=== PATIENT | female | born 1960 | race Asian ===

== ENCOUNTER 2019-06-23 09:23 | Outpatient (CLI) | payer OTHER, SELFPAY ==
--- NOTE | ~2019-06-23 | XR_ITS ---
EXAMINATION: XR chest 2V EXAM DATE: 06/23/2019 09:57 INDICATION: Cough. TECHNIQUE: Frontal and lateral projections of the chest obtained and reviewed. Comparison is made to prior examination from 03/24/2004. FINDINGS: The lungs are clear. There are no pleural effusions. The cardiomediastinal silhouette is within normal limits. There is no pneumothorax suspected. There is mild mid thoracic dextroscoliosi s. IMPRESSION: No acute cardiopulmonary findings. Reviewed, dictated and finalized at location A. EED HARVESTER
== END 2019-06-23 09:24 | disposition home or self-care (01) ==
PROVIDERS: PCP Family Medicine; Visit Provider Nurse Practitioner Family
DX: R05 Cough (principal)
CPT/HCPCS: 71046

== ENCOUNTER 2020-09-13 16:06 | Outpatient (CLI) | payer OTHER, SELFPAY ==
--- NOTE | ~2020-09-13 | MM_ITS ---
EXAMINATION: MM screening [facility] BI w luisa HISTORY: Screening mammogram TECHNIQUE: Craniocaudal and mediolateral oblique 3-D tomosynthesis images were obtained and synthetic 2-D images were generated. CAD analysis was submitted and interpreted. COMPARISON: 04/21/2014, 06/16/2012, 07/14/2009 BREAST PARENCHYMAL COMPOSITION: There are scattered areas of fibroglandular density. FINDINGS: There is no evidence of suspicious mass, calcification, or architectural distortion to sugg est malignancy in either breast. There has been no suspicious interval change. IMPRESSION: 1. No mammographic evidence of malignancy. 2. Recommend routine screening mammography in one year. BI-RADS Category 1: Negative Reviewed, dictated and finalized at location A.
== END 2020-09-13 16:07 | disposition home or self-care (01) ==
LOC: ANHIMG 16:08
PROVIDERS: PCP Family Medicine; Visit Provider Nurse Practitioner Family
DX: Z12.31 Encounter for screening mammogram for malignant neoplasm of breast (principal)
CPT/HCPCS: 77063; 77067

== ENCOUNTER 2021-02-12 01:11 | Day surgery (SDC) | payer OTHER, SELFPAY ==
[2021-01-29 14:01] VITALS: BMI 21.7
[2021-02-12 11:00] VITALS: BP 111/85; PULSE 64; RESP 18; TEMP 36.3; O2SAT 99; BMI 21.9
[2021-02-12] MEDS: LACTATED RINGERS 1,000 ML 150 ML IV CONT ×2 (11:10→12:20)
--- NOTE | 2021-02-12 11:11 | WPDANESEPPF ---
Anes - Initial Pre Proc Eval Procedure: Operation Date: 02/12/21 11:45 Proposed Procedures p Screening Colonoscopy - Adán Wilhelm MD Date/Time: 02/12/21 11:11 Surgeon: Adán Wilhelm MD Pre Op Diagnosis: neoplasm screening Patient Data Age: 60 Gender: F Height: 1.57 m Weight: 54.3 kg Last Vital Signs Temp 36.3 C L 02/12/21 11:00 Pulse 64 02/12/21 11:00 Resp 18 02/12/21 11:00 BP 111/85 02/12/21 11:00 Pulse Ox 18 L 02/12/21 11:00 Allergies Allergy/AdvReac Type Severity Reaction Status Date / Time No Known Allergies Allergy Verified 02/12/21 10:58 Home Medications Medication Instructions Recorded Confirmed Type celecoxib 200 mg capsule 200 mg PO DAILY #30 cap 02/18/20 01/29/21 Rx triamcinolone acetonide 0.1 % 1 applic TOPICAL TID #80 g 07/20/20 01/29/21 Rx topical cream cyclobenzaprine 10 mg tablet 10 mg PO .COMPLEX #90 tablet 11/06/20 01/29/21 Rx valacyclovir 500 mg tablet See Rx Instructions .ROUTE 12/05/20 01/29/21 Rx .COMPLEX #90 tablet fluoxetine 20 mg capsule 20 mg PO DAILY #90 cap 12/15/20 01/29/21 Rx rizatriptan 10 mg disintegrating See Rx Instructions .ROUTE 01/24/21 01/29/21 Rx tablet .COMPLEX #10 tablet lansoprazole 30 mg capsule,delayed 30 mg PO DAILY #90 cap 02/07/21 Rx release zolpidem 10 mg tablet 10 mg PO QHS #30 tablet 02/12/21 Rx Patient hx anesthesia problems: none Family hx anesthesia problems: none Results Review: All pre-operative results and documents have been reviewed as part of the pre-operative evaluation. [facility] Past Medical History Medical History Anxiety BMI 25.0-25.9,adult Dyslipidemia Gastroesophageal reflux disease Major depressive disorder, single episode, unspecified Migraine, unspecified, not intractable, without status migrainosus Family History Family History Sibling Family history of type 2 diabetes mellitus Father Cancer Mother No problems noted. Sibling Diabetes mellitus Social History Social History Smoking packs per day: 1 Smoking cigarettes per day: 20.0 Smoking status: Former smoker Tobacco type: cigarettes Second hand tobacco smoke exposure: No Smoking end date: 05/05/96 Alcohol intake: current Drinks per week: 3 Substance use: never Substance use type: does not use Living arrangements: with family Gender identity (if verbalized by the patient): Female Spiritual care concerns: No Anes - Eval Final PreProcedure Day of Procedure 02/12/21 11:11 Patient weight: normal Heart: regular rate and rhythm Lungs: clear to auscultation Airway: Mallampati scale class II Neurological: alert and oriented Last oral intake: >/= 8 hours ASA classification: III Emergent: no Anesthetic plan: proceed Anesthesia type and monitoring: general GIVS and standard monitoring Results Review: All pre-operative results and documents have been reviewed as part of the pre-operative evaluation. Informed Consent: The patient's anesthetic plan and its attendant risks and benefits were discussed with the patient/family/POA. Questions were solicited and answers provided to the satisfaction of the patient/family/POA.
--- NOTE | 2021-02-12 11:49 | PM.HPGS ---
History of Present Illness History of Present Illness Consent: Risks, benefits, and alternatives have been discussed and questions answered. Patient agrees to proceed with procedure. Chief complaint: neoplasm screening Narrative: Abhijit Xiong is a 60 year old female with last colonoscopy 11 years ago. Review of Systems Constitutional: Constitutional: Denies headache(s) and Denies weakness Eyes: Eyes: Denies blurry vision ENT: Reports Normal hearing present, Denies headache(s) and Denies neck pain Cardiovascular: Cardiovascular: Denies chest pain and Denies dyspnea Respiratory: Respiratory: Denies dyspnea Gastrointestinal: Gastrointestinal: Reports no additional gastrointestinal complaints Genitourinary: Genitourinary: Denies dysuria Musculoskeletal: Musculoskeletal: Denies neck pain Integumentary/Breasts: Skin/Breast: Denies dry skin Neurologic: Reports Normal hearing present, Denies headache(s) and Denies weakness Psychiatric: Psychiatric: Denies anxiety Endocrine: Endocrine: Denies change in body appearance Hematologic/Lymphatic: Hematologic/Lymphatic: Denies easy bleeding Allergic/Immunologic: Allergic/Immunologic: Denies urticaria PMFSH Past Medical History Medical History Anxiety BMI 25.0-25.9,adult Dyslipidemia Gastroesophageal reflux disease Major depressive disorder, single episode, unspecified Migraine, unspecified, not intractable, without status migrainosus Family History Family History Sibling Family history of type 2 diabetes mellitus Father Cancer Mother No problems noted. Sibling Diabetes mellitus Social History Social History Smoking packs per day: 1 Smoking cigarettes per day: 20.0 Smoking status: Former smoker Tobacco type: cigarettes Second hand tobacco smoke exposure: No Smoking end date: 05/05/96 Alcohol intake: current Drinks per week: 3 Substance use: never Substance use type: does not use Living arrangements: with family Gender identity (if verbalized by the patient): Female Spiritual care concerns: No Meds Home Medications and Allergies Home Medications Medication Instructions Recorded Confirmed Type celecoxib 200 mg capsule 200 mg PO DAILY #30 cap 02/18/20 01/29/21 Rx triamcinolone acetonide 0.1 % 1 applic TOPICAL TID #80 g 07/20/20 01/29/21 Rx topical cream cyclobenzaprine 10 mg tablet 10 mg PO .COMPLEX #90 tablet 11/06/20 01/29/21 Rx valacyclovir 500 mg tablet See Rx Instructions .ROUTE 12/05/20 01/29/21 Rx .COMPLEX #90 tablet fluoxetine 20 mg capsule 20 mg PO DAILY #90 cap 12/15/20 01/29/21 Rx rizatriptan 10 mg disintegrating See Rx Instructions .ROUTE 01/24/21 01/29/21 Rx tablet .COMPLEX #10 tablet lansoprazole 30 mg capsule,delayed 30 mg PO DAILY #90 cap 02/07/21 Rx release zolpidem 10 mg tablet 10 mg PO QHS #30 tablet 02/12/21 Rx Allergies Allergy/AdvReac Type Severity Reaction Status Date / Time No Known Allergies Allergy Verified 02/12/21 10:58 Vital Signs Vital Signs - 24 hr 02/12/21 11:00 Temperature 97.4 F L Pulse Rate 64 Respiratory Rate 18 Blood Pressure 111/85 Pulse Oximetry 18 L Exam Const: General: comfortable and no acute distress HENMT: General nose exam: Normal nares present Eyes: General: appearance normal, both eyes and all related structures Neck: Neck: no JVD Resp: Auscultation: clear to auscultation bilaterally Cardio: Rate: regular rate Rhythm: regular rhythm GI: Inspection: non-distended GI Palp: Yes Soft to palpation Skin: General skin exam: normal color Neuro: General: gait normal Speech: normal speech Extrem: General: normal to inspection Psych: Mental Status: mental status grossly normal Assessment and Plan Assessment and plan (1) Screening for colon cancer
[2021-02-12 12:23] VITALS: BP 94/53; PULSE 62; RESP 15; O2SAT 100
[2021-02-12 12:33] VITALS: BP 87/53; PULSE 60; RESP 19; O2SAT 100
[2021-02-12 12:43] VITALS: BP 102/51; PULSE 62; RESP 18; O2SAT 100
== END 2021-02-12 12:58 | disposition home or self-care (01) ==
PROVIDERS: PCP Family Medicine; Visit Provider Internal Medicine Gastroenterology
PROC: 0DJD8ZZ Inspection of Lower Intestinal Tract, Via Natural or Artificial Opening Endoscopic (ICD-10-PCS; CPT 45378; principal; 2021-02-12 11:45)
DX: Z12.11 Encounter for screening for malignant neoplasm of colon (principal); K63.89 Other specified diseases of intestine; K64.8 Other hemorrhoids; D12.0 Benign neoplasm of cecum; K63.5 Polyp of colon; F41.9 Anxiety disorder, unspecified; E78.5 Hyperlipidemia, unspecified; F32.9 Major depressive disorder, single episode, unspecified; Z87.891 Personal history of nicotine dependence
CPT/HCPCS: 45385; 88305; J2001; J2704; J7120

== ENCOUNTER 2022-11-20 11:45 | Outpatient (CLI) | payer OTHER, SELFPAY ==
--- NOTE | ~2022-11-20 | XR_ITS ---
Left Knee Technique: AP, lateral, and sunrise views were obtained. Clinical History: Pain Findings: No fracture or dislocation is seen. Questionable osteochondral defect of the patella with p ossible small loose body at the inferior patellar region. Mild tricompartmental degenerative spurring present. Soft tissues are unremarkable. No joint effusion is seen. Impression: Possible osteochondral lesion of the patella with possible small loose body at the infrapatellar srinivas on. Consider follow-up MR to further evaluate as indicated. Mild tricompartmental degenerative changes otherwise. Reviewed, dictated and finalized at location . Impression: Possible osteochondral lesion of the patella with possible small loose body at the infrapatellar region. Consider follow-up MR to further evaluate as indicate d. Mild tricompartmental degenerative changes otherwise.
== END 2022-11-20 11:46 | disposition home or self-care (01) ==
PROVIDERS: PCP Family Medicine; Visit Provider Physician Assistant Medical
DX: M17.12 Unilateral primary osteoarthritis, left knee (principal)
CPT/HCPCS: 73562

== ENCOUNTER → 2022-11-29 06:54 | Outpatient (CLI) | payer OTHER, SELFPAY ==
--- NOTE | ~2022-11-29 | MR_ITS ---
MRI of the left knee Clinical history: Pain Technique: Coronal proton density and proton density-weighted images, sagittal proton-density and T2 fat-sat images, and axial proton-density fat-saturated images were acquired. Findings: There is diffusely increased signal and thickening of the ACL, compatible with mucoid degen erative change. Posterior cruciate ligament is intact. Medial collateral ligament and the lateral col lateral ligament complex are intact. Popliteus tendon is intact. Medial meniscus is intact, without evidence of tear. There is complex tearing throughout the lateral meniscus, with possible buckle handle tear and flipped fragment towards the intercondylar notch. There is high-grade chondromalacia at the posterior aspect of the lateral femoral condyle, with small lateral joint line osteophytes. Articular cartilage in the medial compartment is well preserved. The re is a focal grade 4 chondral fissure at the patellar apex. Femoral trochlear cartilage is intact. Extensor mechanism is intact. Small to moderate joint effusion present. No Yeboah's cyst. There is a 7 mm loose body posterior to the distal femur (sagittal image 12). Impression: Extensive complex tearing involving the entirety of the lateral meniscus, with possible bucket-handle tear and flipped fragment towards the intercondylar notch. Mucoid degenerative change of the ACL, as detailed above. Moderate degenerative change of the lateral compartment. Minimal degenerative change of the medial an d patellofemoral compartments. 7 mm intra-articular loose body posterior to the distal femur. Ryofs-fl-axyguoag joint effusion. Reviewed, dictated and finalized at [facility]. Impression: Extensive complex tearing involving the entirety of the lateral meniscus, with possible bucket-handle tear and flipped fragment towards the intercondylar notc h. Mucoid degenerative change of the ACL, as detailed above. Moderate degenerative change of the lateral compartment. Minimal degenerative c hange of the medial and patellofemoral compartments. 7 mm intra-articular loose body posterior to the distal femur. [id number]-tx-ysfljay e joint effusion.
== END ==
PROVIDERS: PCP Family Medicine; Visit Provider Family Medicine
DX: M95.8 Other specified acquired deformities of musculoskeletal system (principal); M17.12 Unilateral primary osteoarthritis, left knee; S83.282A Other tear of lateral meniscus, current injury, left knee, initial encounter; M23.42 Loose body in knee, left knee; M25.462 Effusion, left knee; X58.XXXA Exposure to other specified factors, initial encounter
CPT/HCPCS: 73721

== ENCOUNTER 2023-02-19 02:01 | Day surgery (SDC) | payer OTHER, SELFPAY ==
--- NOTE | 2023-02-05 13:39 | PC.NURSE ---
Report to the Outpatient Waiting Room, entrance under the green pavilion located off [facility], at time 1130 on date 02/19/23. Planned Procedure Time: 1330. Time changes happen often and if your time is changed the preop area will call you the afternoon before. - You and your visitor will be asked to self-screen and do not enter if you have any COVID symptoms. - A mask is optional within the hospital at this time. Patients may have clear liquids (water, carbonated beverages, clear teas, apple juice) until 3 hours prior to surgery with a maximum of 20 ounces. 1030 - No food from midnight until time of surgery - Infants may have breast milk until 4 hours before surgery, formula 6 hours prior to surgery. - Children will be allowed to drink immediately following surgery. If applicable, please bring a bottle or sippy cup to assist with drinking. Juice, water, soda, and popsicles are readily available. For infants on formula, please bring formula the day of surgery. Pacifiers are allowed. Take the following medications with a SIP of water the morning of surgery: celebrex, fluoextine, rizatriptan DO NOT STOP ANY OF YOUR OTHER PRESCRIPTION MEDICATIONS PRIOR TO SURGERY ?EXCEPT THE FOLLOWING Medications to discontinue per physician cyclobenzaprine, lansoprazole, triamcinolone, zolpidem Date to take last dose 02/18/23 Please no make-up, nail arabic, hairspray, perfume, deodorant, or body powder the day of surgery. No jewelry (including any body piercings) or valuables the day of surgery, leave them at home. Please take a shower or bath the night before, or the morning of, surgery with an antibacterial soap. Wear comfortable, loose fitting clothing. Children are encouraged to wear pajamas. - Jewelry must be removed prior to entering the operating room. Rings and piercings that are not removed may be cut off. - The hospital will not accept responsibility for valuables. - Please leave all valuables, including medications, at home the day of surgery. If you are going home after surgery, a licensed local driver must drive you home. - NO public transportation without another adult if you receive anesthesia. - We recommend that an adult stay with you for 24 hours following discharge. - We also recommend that you do not drive, make important decision, drink alcoholic beverages, or take any drugs that were not prescribed by your health care provider for at least 24 hours after your discharge time. For Pediatric surgeries, we recommend two adults accompany the child home. Follow any additional instructions given to you from your surgeon. If you or anyone in your household have experienced Covid symptoms in the past week, please notify your surgeon or the nurse liaison at the phone number below for possible testing. Telephone instructions given to Abhijit Xiong and asked if any additional questions and then verbalized understanding. Patient advised to call surgeon office or pre surgery nurse liaison [phone] if any additional questions.
[2023-02-05 13:47] VITALS: BMI 26.4
[2023-02-19] VITALS (11 sets, daily range): BP systolic 104–117; BP diastolic 62–80; PULSE 69–87; RESP 10–18; TEMP 36.6–37.2; O2SAT 96–100; BMI 27.0
--- NOTE | 2023-02-19 07:29 | WPDHPUPDATE1 ---
History and Physical Update Update Date/Time: 02/19/23 07:29 History and Physical has been reviewed, including an updated exam of the patient. There are NO changes in the patient's condition. Risks, benefits, and alternatives have been discussed and questions answered. Patient agrees to proceed with procedure.
[2023-02-19] MEDS: ACETAMINOPHEN 500 MG TABLET 1000 MG PO (12:01)
[2023-02-19] MEDS: CELECOXIB 200 MG CAPSULE PO (12:01)
[2023-02-19] MEDS: LACTATED RINGERS 1,000 ML 30 ML IV CONT ×2 (12:04→16:38)
--- NOTE | 2023-02-19 12:18 | WPDANESEPPF ---
Anes - Initial Pre Proc Eval Procedure: Operation Date: 02/19/23 13:30 Proposed Procedures p Left Knee Arthroscopy - Tariq Sarah MD Date/Time: 02/19/23 12:18 Surgeon: Tariq Sarah MD Pre Op Diagnosis: Lt Knee Lateral Meniscus Tear Patient Data Age: 62 Gender: F Height: 1.52 m Weight: 61.3 kg Allergies Allergy/AdvReac Type Severity Reaction Status Date / Time No Known Allergies Allergy Verified 02/19/23 12:00 Home Medications Medication Instructions Recorded Confirmed Type rizatriptan 10 mg disintegrating See Rx Instructions .Route 11/08/22 02/19/23 Rx tablet .COMPLEX #10 tabs lansoprazole 30 mg capsule,delayed See Rx Instructions .Route 11/18/22 02/19/23 Rx release .COMPLEX #90 caps celecoxib 200 mg capsule 400 mg PO DAILY #180 caps 11/20/22 02/19/23 Rx fluoxetine 20 mg capsule 20 mg PO DAILY #90 caps 11/20/22 02/19/23 Rx triamcinolone acetonide 0.1 % 1 applic topical TID #80 grams 11/20/22 02/19/23 Rx topical cream zolpidem 10 mg tablet (Ambien) 10 mg PO QHS #30 tabs 11/20/22 02/19/23 Rx cyclobenzaprine 10 mg tablet 10 mg PO HS 02/05/23 02/19/23 History chlorhexidine gluconate 4 % 1 applic topical ONCE #237 mL 02/10/23 02/19/23 Rx topical liquid (Hibiclens) Patient hx anesthesia problems: none Family hx anesthesia problems: none Results Review: All pre-operative results and documents have been reviewed as part of the pre-operative evaluation. [facility] Past Medical History Medical History Anxiety BMI 25.0-25.9,adult Body mass index [BMI] 23.0-23.9, adult Dyslipidemia Gastroesophageal reflux disease Major depressive disorder, single episode, unspecified Migraine, unspecified, not intractable, without status migrainosus Family History Family History Sibling Family history of type 2 diabetes mellitus Father Cancer Mother No problems noted. Sibling Diabetes mellitus Social History Social History Smoking packs per day: 0.5 Smoking cigarettes per day: 10.0 Years smoked: 10 Smoking pack-years: 5.00 Smoking status: Former smoker Tobacco type: cigarettes Second hand tobacco smoke exposure: No Smoking end date: 05/05/96 Alcohol intake: current Drinks per week: 3 Substance use: never Substance use type: does not use Living arrangements: with family Occupation/Education: retired Gender identity (if verbalized by the patient): Female Spiritual care concerns: No Anes - Eval Final PreProcedure Day of Procedure 02/19/23 12:18 Patient weight: overweight Heart: regular rate and rhythm Lungs: clear to auscultation Airway: Mallampati scale class II Neurological: alert and oriented Last oral intake: >/= 8 hours ASA classification: II Emergent: no Anesthetic plan: proceed Anesthesia type and monitoring: general LMA and standard monitoring Results Review: All pre-operative results and documents have been reviewed as part of the pre-operative evaluation. Informed Consent: The patient's anesthetic plan and its attendant risks and benefits were discussed with the patient/family/POA. Questions were solicited and answers provided to the satisfaction of the patient/family/POA.
[2023-02-19] MEDS: ceFAZolin 2 GM/D5W 50 ML 2 GM/50 ML BAG IVPB (14:21)
[2023-02-19] MEDS: BUPivacaine HCL 0.5% 10 ML AMP 30 ML INFILTRATE (14:51)
--- NOTE | 2023-02-19 16:34 | W.PM.PROC2 ---
Procedure Note - Detailed Date of Procedure 02/19/23 Pre-op Diagnosis Lt Knee Lateral Meniscus Tear Post-op Diagnosis Same Procedure Performed LEFT KNEE SCOPE Surgeon Tariq Sarah MD Anesthesia General Description of Procedure PATIENT WAS TAKEN TO THE OR. LEFT LEG WAS PREPPED AND DRAPED STERILE. TROCARS WERE PLACED IN THE USUAL FASHION. CAMERA WAS INTRODUCED. THERE WAS MODERATE CHONDROMALACIA TO THE PATELLA FEMORAL JOINT. THERE WAS A LOT OF SYNOVITIS IN ALL COMPARTMENTS. THE MEDIAL COMPARTMENT SHOWED NO CHONDROMALACIA TO THE MEDIAL FEMORAL CONDYLE OR PLATEAU. THERE WAS NO MEDIAL MENISCUS TEAR. THERE WAS A PARTIAL TEAR TO THE ACL . THE ACL WAS DEBRIDED. THERE WAS A LOOSE BODY IN THE INTERCONDYLAR NOTCH. THE LOOSE BODY WAS REMOVED. THE WAS A LARGE COMPLEX TEAR TO LATERAL MENISCUS. THE TEAR WAS RESECTED. THE LATERAL COMPARTMENT HAD GRADE 3 TO 4 CHONDROMALACIA AT THE LATERAL FEMORAL CONDYLE. CHONDROPLASTY WAS PREFORMED. A SYNOVECTOMY WAS PREFORMED WELL. THE PATELLO FEMORAL JOINT UNDERWENT CHONDROPLASTY OVER THE PATELLA AND TROCHLEA. THERE WAS GRADE 2 CHONDROMALACIA IN PART OF THE TROCHLEA AND PART OF THE PATELLA. SYNOVECTOMY WAS PREFORMED IN THE SUPERIOR MEDIAL COMPARTMENT. THE WOUNDS WERE APPROXIMATED WITH 4.0 NYLON. STERILE DRESSING WAS APPLIED. PATIENT WAS EXTUBATED. Estimated Blood Loss 5 Complications No immediate complications Condition Stable Disposition PACU
[2023-02-19] MEDS: fentaNYL CITRATE INJ (*CRX) 100 MCG/2 ML VIAL 25 MCG IV PUSH ×4 (17:12→17:23)
[2023-02-19] MEDS: oxyCODONE HCL (*CRX) 5 MG TAB IR PO (18:19)
== END 2023-02-19 18:46 | disposition home or self-care (01) ==
PROVIDERS: PCP Family Medicine; Visit Provider Orthopaedic Surgery
PROC: (CPT 29870; principal; 2023-02-19 13:30)
DX: S83.272A Complex tear of lateral meniscus, current injury, left knee, initial encounter (principal); S83.512A Sprain of anterior cruciate ligament of left knee, initial encounter; M65.862 Other synovitis and tenosynovitis, left lower leg; M22.42 Chondromalacia patellae, left knee; V19.9XXA Pedal cyclist (driver) (passenger) injured in unspecified traffic accident, initial encounter; E78.5 Hyperlipidemia, unspecified; K21.9 Gastro-esophageal reflux disease without esophagitis; F32.9 Major depressive disorder, single episode, unspecified; F41.9 Anxiety disorder, unspecified; Z87.891 Personal history of nicotine dependence
CPT/HCPCS: 29881; 29876; A9270; J0690; J1100; J1170; J2250; J2405; J2704; J3010; J7120

== ENCOUNTER 2023-07-29 09:13 | Outpatient (CLI) | payer OTHER, SELFPAY ==
--- NOTE | ~2023-07-29 | MM_ITS ---
EXAMINATION: MM screening [facility] BI w luisa HISTORY: Screening mammogram TECHNIQUE: Craniocaudal and mediolateral oblique 3-D tomosynthesis images were obtained and synthetic 2-D images were generated. CAD analysis was submitted and interpreted. COMPARISON: 09/13/2020 bilateral screening mammogram BREAST PARENCHYMAL COMPOSITION: There are scattered areas of fibroglandular density. FINDINGS: There is no evidence of suspicious mass, calcification, or architectural distortion to sugg est malignancy in either breast. There has been no suspicious interval change. IMPRESSION: 1. No mammographic evidence of malignancy. 2. Recommend routine screening mammography in one year. BI-RADS Category 1: Negative Reviewed, dictated and finalized at location A.
--- NOTE | ~2023-07-29 | DEXA_ITS ---
Bone Density Report Name: JOSE BRAGA Age: 63 Sex: Female Ethnicity: White Date of : 1960 Indication: postmenopausal; screening for osteoporosis; Referring Provider: LETITIA GAMA Study: Bone densitometry was performed. Exam Date: July 29, 2023 Accession number: [id number] Bone Density: Region BMD T-score Z-score Classification AP Spine(L1-L4) 1.045 0.0 1.7 Normal Femoral Neck (Left) 0.744 -0.9 0.5 Normal Total Hip (Left) 0.901 -0.3 0.8 Normal Femoral Neck (Right) 0.788 -0.5 0.9 Normal Total Hip (Right) 0.944 0.0 1.2 Normal Total Hip Mean 0.922 -0.2 1.0 Normal World Health Organization criteria for BMD impression classify patients as: Normal (T-score at or above -1.0), Osteopenia (T-score between -1.0 and -2.5), or Osteoporosis (T-score at or below -2.5). 10-year Fracture Risk: FRAX not reported because: All T-scores for Spine Total, Hip Total, Femoral Neck at or above -1.0 Clinical Information Provided by Patient: Has used the following medications: Vitamin D, Calcium Patient maximum height was 60 Menopause Age: 49 Does not regularly consume dairy products Drinks caffeinated beverages Onset of menses at age 13 Number of children 1 Impression: The patient has normal bone mass. Discussion: BONE DENSITY IS ABOVE THE MINIMUM DESIRABLE LEVEL AT ALL SKELETAL SITES TESTED. This patient?s bone mineral density is above the minimum desirable level (T-score -1.0 or better) at all sites measured. The patient should follow a healthful lifestyle (good nutrition with adequate calcium and vitamin D, and appropriate weight-bearing exercise). Follow-Up: Consider repeating this study in 5 years or sooner if there is some new clinical indication. Reported by: WILY on 07/29/2023 3:26:00 PM. Reviewed, dictated and finalized at location AShannan CHAPARRO
== END 2023-07-29 09:14 | disposition home or self-care (01) ==
PROVIDERS: PCP Family Medicine; Visit Provider Physician Assistant
DX: Z12.31 Encounter for screening mammogram for malignant neoplasm of breast (principal); Z78.0 Asymptomatic menopausal state
CPT/HCPCS: 77063; 77067; 77080

== ENCOUNTER 2023-07-30 06:08 | Day surgery (SDC) | payer OTHER, SELFPAY ==
[2023-07-02 08:42] VITALS: BMI 27.1
[2023-07-11 12:02] VITALS: BMI 27.1
--- NOTE | 2023-07-11 12:15 | PC.NURSE ---
PT GAVE VERBAL CONSENT TO SPEAK WITH HER SPOUSE FOR THE PREOP INTERVIEW
[2023-07-30 07:06] VITALS: BP 127/87; PULSE 67; RESP 16; TEMP 36.8; O2SAT 97
--- NOTE | 2023-07-30 07:16 | WPDANESEPPF ---
Anes - Initial Pre Proc Eval Procedure: Operation Date: 07/30/23 08:30 Proposed Procedures p Colonoscopy - Jaciel Bentley MD Date/Time: 07/30/23 07:16 Surgeon: Jaciel Bentley MD Pre Op Diagnosis: History of Colon Polyps Patient Data Age: 63 Gender: F Height: 1.52 m Weight: 64.05 kg Last Vital Signs Temp 36.8 C 07/30/23 07:06 Pulse 67 07/30/23 07:06 Resp 16 07/30/23 07:06 BP 127/87 07/30/23 07:06 Pulse Ox 97 07/30/23 07:06 O2 Del Method Room Air 07/30/23 07:06 Allergies Allergy/AdvReac Type Severity Reaction Status Date / Time No Known Allergies Allergy Verified 07/30/23 07:04 Home Medications Medication Instructions Recorded Confirmed Type cyclobenzaprine 10 mg tablet 10 mg PO HS #90 tabs 06/30/23 07/30/23 Rx fluoxetine 20 mg capsule 20 mg PO DAILY #90 caps 06/30/23 07/30/23 Rx rizatriptan 10 mg disintegrating See Rx Instructions .Route 06/30/23 07/30/23 Rx tablet .COMPLEX #10 tabs zolpidem 10 mg tablet (Ambien) 10 mg PO QHS #30 tabs 06/30/23 07/30/23 Rx celecoxib 200 mg capsule 400 mg PO DAILY #180 caps 07/20/23 07/30/23 Rx lansoprazole 30 mg capsule,delayed 30 mg PO DAILY 07/30/23 07/30/23 History release Patient hx anesthesia problems: none Family hx anesthesia problems: none Results Review: All pre-operative results and documents have been reviewed as part of the pre-operative evaluation. [facility] Past Medical History Medical History Anxiety BMI 25.0-25.9,adult Body mass index [BMI] 23.0-23.9, adult Dyslipidemia Gastroesophageal reflux disease Major depressive disorder, single episode, unspecified Migraine, unspecified, not intractable, without status migrainosus Family History Family History Sibling Family history of type 2 diabetes mellitus Father Cancer Mother No problems noted. Sibling Diabetes mellitus Social History Social History Smoking packs per day: 0.5 Smoking cigarettes per day: 10.0 Years smoked: 10 Smoking pack-years: 5.00 Smoking status: Former smoker Tobacco type: cigarettes Second hand tobacco smoke exposure: No Smoking end date: 05/05/96 Alcohol intake: current Drinks per week: 2 Substance use: never Substance use type: does not use Do You Feel Safe in your Home?: Yes Lack of Transportation: No Lack of Food: Never True Current Housing: I Have Housing Concerned About Future Housing: No Difficulty Paying Gas/Electric Bills: No Difficulty Paying for Meds: No Currently Unemployed: No Education: Grade School Difficulty w/ Childcare or Family Care: No Living arrangements: with family Occupation/Education: retired Gender identity (if verbalized by the patient): Female Spiritual care concerns: No Anes - Eval Final PreProcedure Day of Procedure 07/30/23 07:16 Patient weight: overweight Heart: regular rate and rhythm Lungs: clear to auscultation Airway: Mallampati scale class III Neurological: alert and oriented Last oral intake: >/= 8 hours ASA classification: III Emergent: no Anesthetic plan: proceed Anesthesia type and monitoring: general GIVS and standard monitoring Results Review: All pre-operative results and documents have been reviewed as part of the pre-operative evaluation. Informed Consent: The patient's anesthetic plan and its attendant risks and benefits were discussed with the patient/family/POA. Questions were solicited and answers provided to the satisfaction of the patient/family/POA.
[2023-07-30] MEDS: LACTATED RINGERS 1,000 ML 150 ML IV CONT (07:29)
--- NOTE | 2023-07-30 08:10 | PM.HPGS ---
History of Present Illness History of Present Illness Consent: Risks, benefits, and alternatives have been discussed and questions answered. Patient agrees to proceed with procedure. Chief complaint: History of Colon Polyps Narrative: Abhijit Xiong is a 63 year old female presents for screening colonoscopy. Patient's current weight appetite and bowel movements are normal. Patient denies abdominal pain. She has had no bleeding. Previous colonoscopy 2 or 3 years ago revealed multiple colon polyps. Patient presents today for follow-up colonoscopy. Review of Systems Review of Systems: Review Of systems noncontributory. [facility] Past Medical History Medical History Anxiety BMI 25.0-25.9,adult Body mass index [BMI] 23.0-23.9, adult Dyslipidemia Gastroesophageal reflux disease Major depressive disorder, single episode, unspecified Migraine, unspecified, not intractable, without status migrainosus Family History Family History Sibling Family history of type 2 diabetes mellitus Father Cancer Mother No problems noted. Sibling Diabetes mellitus Social History Social History Smoking packs per day: 0.5 Smoking cigarettes per day: 10.0 Years smoked: 10 Smoking pack-years: 5.00 Smoking status: Former smoker Tobacco type: cigarettes Second hand tobacco smoke exposure: No Smoking end date: 05/05/96 Alcohol intake: current Drinks per week: 2 Substance use: never Substance use type: does not use Do You Feel Safe in your Home?: Yes Lack of Transportation: No Lack of Food: Never True Current Housing: I Have Housing Concerned About Future Housing: No Difficulty Paying Gas/Electric Bills: No Difficulty Paying for Meds: No Currently Unemployed: No Education: Grade School Difficulty w/ Childcare or Family Care: No Living arrangements: with family Occupation/Education: retired Gender identity (if verbalized by the patient): Female Spiritual care concerns: No Meds Home Medications and Allergies Home Medications Medication Instructions Recorded Confirmed Type cyclobenzaprine 10 mg tablet 10 mg PO HS #90 tabs 06/30/23 07/30/23 Rx fluoxetine 20 mg capsule 20 mg PO DAILY #90 caps 06/30/23 07/30/23 Rx rizatriptan 10 mg disintegrating See Rx Instructions .Route 06/30/23 07/30/23 Rx tablet .COMPLEX #10 tabs zolpidem 10 mg tablet (Ambien) 10 mg PO QHS #30 tabs 06/30/23 07/30/23 Rx celecoxib 200 mg capsule 400 mg PO DAILY #180 caps 07/20/23 07/30/23 Rx lansoprazole 30 mg capsule,delayed 30 mg PO DAILY 07/30/23 07/30/23 History release Allergies Allergy/AdvReac Type Severity Reaction Status Date / Time No Known Allergies Allergy Verified 07/30/23 07:04 Vital Signs Vital Signs - 24 hr 07/30/23 07:06 Temperature 98.3 F Pulse Rate 67 Respiratory Rate 16 Blood Pressure 127/87 Pulse Oximetry 97 Oxygen Delivery Room Air Exam Narrative: Physical exam reveals patient to be alert. Vital signs stable. HEENT exam is unremarkable. Patient is anicteric. Lungs are clear to auscultation and to percussion. Heart is without murmur or extra sounds. Abdomen bowel sounds are present soft nontender with no organomegaly. Digital external rectal exam is normal. Assessment and Plan Assessment and plan (1) History of colon polyps: Code(s): Z86.010 - Personal history of colonic polyps Status: Acute Assessment and Plan: History of colon polyps. Plan for surveillance colonoscopy at this time . also at intervals in the future.
[2023-07-30 08:39] VITALS: BP 98/65; PULSE 66; RESP 12; O2SAT 98
[2023-07-30 08:49] VITALS: BP 98/59; PULSE 70; RESP 12; O2SAT 98
[2023-07-30 08:59] VITALS: BP 110/70; PULSE 64; RESP 14; O2SAT 98
--- NOTE | 2023-07-30 09:15 | WPDANESPN ---
Anes - Prog Note Post-Op Date/Time: 07/30/23 09:15 Cardiovascular status: normal Respiratory status: normal Airway patency: baseline Mental status: baseline Post-Op hydration status: normal Vital Signs: Last Vital Signs Temp 36.8 C 07/30/23 07:06 Pulse 64 07/30/23 08:59 Resp 14 07/30/23 08:59 BP 110/70 07/30/23 08:59 Pulse Ox 98 07/30/23 08:59 O2 Del Method Room Air 07/30/23 08:59 Pain Score (VAS): 0 I/O: Intake & Output 07/29/23 07/30/23 07/30/23 23:59 07:59 15:59 Intake Total 350 Balance 350 Patient Feedback: Patient satisfied with anesthetic care.
== END 2023-07-30 09:14 | disposition home or self-care (01) ==
PROVIDERS: PCP Family Medicine; Referring Provider Family Medicine; Visit Provider Internal Medicine Gastroenterology
PROC: 0DJD8ZZ Inspection of Lower Intestinal Tract, Via Natural or Artificial Opening Endoscopic (ICD-10-PCS; CPT 45378; principal; 2023-07-30 08:30)
DX: Z86.010 Personal history of colon polyps (principal); K64.8 Other hemorrhoids
CPT/HCPCS: 45378